=== PATIENT | male | born 1990 | race African-American/Black ===

== ENCOUNTER 2022-05-18 15:20 | Emergency (ER) | payer MEDICARE, SELFPAY ==
--- NOTE | ~2022-05-18 | CT_ITS ---
EXAMINATION: CT ABDOMEN AND PELVIS WITHOUT CONTRAST CLINICAL INFORMATION: Right flank pain COMPARISON: None available. TECHNIQUE: Multidetector volumetric imaging was performed from the superior aspect of the liver through the pubic symphysis. No oral or intravenous contrast. Sagittal and coronal reformatted images were obtained on the technologist's workstation. This CT examination was performed using dose optimization techniques as appropriate, variously including the following: *Automated exposure control *Adjustment of mA and/or kV according to patient size (this includes techniques or standardized protocols for targeted exams where dose is matched to indication/reason for exam; i.e. extremities or head) *Use of iterative reconstruction technique DLP: 772 mGy-cm FINDINGS: LUNG BASES: The visualized lung bases are unremarkable. LIVER, GALLBLADDER, AND BILIARY TREE: The liver is normal in size, shape, and attenuation. No focal hepatic lesion or biliary ductal dilatation is present. There are several gallstones present, largest approximately 0.8 cm. Some fine gravel-like calculi are present at neck gallbladder or cystic duct. There is no gallbladder dilatation or wall thickening or pericholecystic inflammatory changes. Common duct unremarkable is. PANCREAS: Unremarkable. SPLEEN: Unremarkable. Incidental 1.4 cm splenule left upper quadrant. ADRENAL GLANDS: Unremarkable. KIDNEYS AND URETERS: The kidneys are normal in size, shape, and attenuation. No hydronephrosis, hydroureter, or urinary tract calculi seen. No perinephric stranding. BLADDER: Unremarkable. GASTROINTESTINAL TRACT: There is no bowel dilatation or focal inflammatory changes in bowel or mesentery. The appendix is normal. There is no pneumatosis or free air. Moderate stool is present in the right colon and there is stool also noted in the distal ileum. No wall thickening or inflammatory changes right lower quadrant. No ascites or fluid collection. ABDOMINAL WALL: No significant hernia is appreciated. LYMPH NODES: No lymphadenopathy. VASCULAR: Unremarkable. PELVIC VISCERA: Unremarkable. OSSEOUS STRUCTURES: Unremarkable. CT/CT abdomen pelvis wo IV con IMPRESSION: -Cholelithiasis. Fine calculi near cystic duct. No gallbladder wall thickening or ductal dilatation. -No hydronephrosis, urinary tract calculi, or perinephric stranding. -Normal appendix. No inflammatory changes in bowel or mesentery. No ascites or fluid collection. -Moderate stool right colon and distal ileum. No proximal obstruction
[2022-05-18 16:05] VITALS: BP 137/104; PULSE 121; RESP 20; TEMP 36.6; O2SAT 98; BMI 36.9
--- NOTE | 2022-05-18 16:05 | ED.GENADULT ---
HPI - General Adult General Chief complaint: Back Pain/Injury <KHOA Walsh - Last Filed: 05/18/22 16:07> Stated complaint: R side back pain/Diff breathing <KHOA Walsh - Last Filed: 05/18/22 16:07> Time Seen by Provider: 05/18/22 21:17 <KOHA Walsh - Last Filed: 05/18/22 16:07> Source: patient <Drew Clay MD - Last Filed: 05/19/22 04:23> Mode of arrival: ambulatory <Drew Clay MD - Last Filed: 05/19/22 04:23> Limitations: no limitations <Drew Clay MD - Last Filed: 05/19/22 04:23> History of Present Illness HPI narrative: Patient with history of off and on back problems noticed pain in the right upper back since yesterday pressure with nausea no vomiting or diarrhea no urinary complaints fever or chills pain increases on movement and taking deep breaths patient denied any cough no trauma no leg weakness <Drew Clay MD - Last Filed: 05/19/22 04:23> Related Data Home medications: Previous Rx's Medication Instructions Recorded cyclobenzaprine 10 mg tablet 10 mg PO Q8H #20 tabs 05/18/22 oxycodone-acetaminophen 5 mg-325 1 tab PO Q6H PRN pain #20 tabs 05/18/22 mg tablet (Percocet) <KHOA Walsh - Last Filed: 05/18/22 16:07> Allergies/adverse reactions: Allergies Allergy/AdvReac Type Severity Reaction Status Date / Time No Known Allergies Allergy Verified 05/18/22 16:06 <KHOA Walsh - Last Filed: 05/18/22 16:07> Review of Systems Review of Systems: Yes all other systems are reviewed and are negative <Drew Clay MD - Last Filed: 05/19/22 04:23> [facility] Social History Social History: Social History Advance Directives: No Advance Directives Information Provided: No <KHOA Walsh - Last Filed: 05/18/22 16:07> Physical Exam ED Vital Signs: Vital Signs - 24 hr 05/18/22 16:05 05/18/22 21:18 05/18/22 23:16 Temperature 98 F 97.6 F 98.0 F Pulse Rate 121 H 112 H 89 Respiratory Rate 20 16 17 Blood Pressure 137/104 H 142/77 H 127/74 Pulse Oximetry 98 99 96 Oxygen Delivery Method Room Air Room Air BMI result Body Mass Index 36.9 <KHOA Walsh - Last Filed: 05/18/22 16:07> Vital Signs - 24 hr 05/18/22 16:05 05/18/22 21:18 05/18/22 23:16 Temperature 98 F 97.6 F 98.0 F Pulse Rate 121 H 112 H 89 Respiratory Rate 20 16 17 Blood Pressure 137/104 H 142/77 H 127/74 Pulse Oximetry 98 99 96 Oxygen Delivery Method Room Air Room Air BMI result Body Mass Index 36.9 <Drew Clay MD - Last Filed: 05/19/22 04:23> Appearance: Alert. Oriented X3. In moderate distress Eyes: No pallor/ icterus ENT: Pharynx normal. Oral Mucosa moist Neck: Normal inspection. Neck supple. CVS: Normal heart rate and rhythm. Pulses normal. Respiratory: No respiratory distress. Equal air entry bilateral, no wheezing/rales/rhonchi Abdomen: Soft , mild right upper quadrant tenderness no rebound tenderness or guarding Bowel sounds are present, no mass palpable, no CVA tenderness back: Tender paraspinous no focal spinal tenderness Skin: Skin warm and dry. Normal skin color. Normal skin turgor. Extremities: No lower extremity edema. No calf tenderness Neuro: Oriented X 3. No motor deficit. No sensory deficit.No cerebellar signs , cranial nerves II-XII intact <Drew Clay MD - Last Filed: 05/19/22 04:23> Course Course Course Narrative: This is an RME: Additional HPI, ROS, PE not included below will be deferred to primary provider. 32-year-old male presents with right-sided flank pain since yesterday, reports decreased urinary stream is well, no history of kidney stones. Reports he is very uncomfortable worse with movement better at rest. States he is unable to sit down because this would make pain worse. Denies fevers, chills, red flag symptoms of back pain. Physical exam right-sided flank discomfort. No saddle paresthesias. Neuro nonfocal. Ambulatory. Plan labs, urine, CT of the abdomen and pelvis. <KHOA Walsh - Last Filed: 05/18/22 16:07> Medications Administered Discontinued Medications Generic Name Dose Route Start Last Admin Trade Name Freq PRN Reason Stop Dose Admin Sodium Chloride 1,000 mls @ 999 mls/hr 05/18/22 16:15 05/18/22 21:21 Ns IV 05/18/22 17:15 Not Given .Q1H1M KENDALL Sodium Chloride 1,000 mls @ 999 mls/hr 05/18/22 21:28 05/18/22 22:35 Ns IV 05/18/22 22:28 Infused .Q1H1M ONE Infusion Ketorolac Tromethamine 30 mg 05/18/22 21:28 05/18/22 21:44 Ketorolac Tromethamine 30 Mg/Ml Vial IVPUSH 05/18/22 21:29 30 mg ONCE ONE Administration Morphine Sulfate 4 mg 05/18/22 21:28 05/18/22 21:45 Morphine Sulfate 4 Mg/Ml Cartridge IVPUSH 05/18/22 21:29 4 mg ONCE ONE Administration Protocol Ondansetron HCl 4 mg 05/18/22 21:28 05/18/22 21:45 Ondansetron Hcl 4 Mg/2 Ml Vial IVPUSH 05/18/22 21:29 4 mg ONCE ONE Administration <KHOA Walsh - Last Filed: 05/18/22 16:07> Medications Administered Discontinued Medications Generic Name Dose Route Start Last Admin Trade Name Freq PRN Reason Stop Dose Admin Sodium Chloride 1,000 mls @ 999 mls/hr 05/18/22 16:15 05/18/22 21:21 Ns IV 05/18/22 17:15 Not Given .Q1H1M KENDALL Sodium Chloride 1,000 mls @ 999 mls/hr 05/18/22 21:28 05/18/22 22:35 Ns IV 05/18/22 22:28 Infused .Q1H1M ONE Infusion Ketorolac Tromethamine 30 mg 05/18/22 21:28 05/18/22 21:44 Ketorolac Tromethamine 30 Mg/Ml Vial IVPUSH 05/18/22 21:29 30 mg ONCE ONE Administration Morphine Sulfate 4 mg 05/18/22 21:28 05/18/22 21:45 Morphine Sulfate 4 Mg/Ml Cartridge IVPUSH 05/18/22 21:29 4 mg ONCE ONE Administration Protocol Ondansetron HCl 4 mg 05/18/22 21:28 05/18/22 21:45 Ondansetron Hcl 4 Mg/2 Ml Vial IVPUSH 05/18/22 21:29 4 mg ONCE ONE Administration <Drew Clay MD - Last Filed: 05/19/22 04:23> Medical Decision Making Medical Decision Making [facility] Narrative: Patient with back spasm Angela sign negative does have gallstones also no signs of cholecystitis, no neuro deficit pain improved after pain medication and muscle relaxant discharge patient home advised to follow with surgeon <Drew Clay MD - Last Filed: 05/19/22 04:23> Lab Data [facility] Lab Attestation statement: I reviewed the patient's lab results. <Drew Clay MD - Last Filed: 05/19/22 04:23> Result Diagrams: 05/18/22 16:48 05/18/22 06:28 <KHOA Walsh - Last Filed: 05/18/22 16:07> Labs: Lab Results 05/18/22 05/18/22 05/18/22 Range/Units 06:28 16:48 16:48 WBC 13.1 H (4.8-10.8) X10*3/uL RBC 5.82 H (4.60-5.80) X10*6/uL Hgb 16.0 (14.0-18.0) g/dl Hct 48.0 (42.0-52.0) % MCV 82.5 (80.0-98.0) fL MCH 27.5 (27.0-33.0) pg MCHC 33.3 (31.0-36.0) g/dl RDW 12.8 (11.0-16.0) % Plt Count 318 (160-400) X10*3/uL MPV 10.3 (9.4-12.4) fL Immature Gran % (Auto) 0.3 (0.0-0.4) % Neut % (Auto) 70.0 (45-73) % Lymph % (Auto) 18.1 L (20-40) % [place] % (Auto) 10.5 (2-11) % Eos % (Auto) 0.6 (0-4) % Baso % (Auto) 0.5 (0-2) % Lymph # (Auto) 2.4 (1.2-4.9) X10*3/uL [place] # (Auto) 1.4 H (0.1-1.2) X10*3/uL Eos # (Auto) 0.1 (0.0-0.4) X10*3/uL Baso # (Auto) 0.1 (0.0-0.2) X10*3/uL Abs Immat Gran (auto) 0.04 H (0.00-0.03) X10*3/uL Absolute Neuts (auto) 9.1 H (2.0-8.3) x10*3/uL Absolute Nucleated RBC 0.000 (0.0-0.012) X10*3/uL Nucleated RBC % (auto) 0.0 (0.0-0.2) /100WBC Sodium 140 (135-145) mmol/L Potassium 4.7 (3.3-5.1) mmol/L Chloride 105 (96-108) mmol/L Carbon Dioxide 24 (22-29) mmol/L Anion Gap 16 (12-20) BUN 12 (9-16) mg/dL Creatinine 1.13 (0.5-1.4) mg/dL Estim Creat Clear Calc 118.6 Estimated GFR > 60 Random Glucose 101 (60-115) mg/dL Calcium 10.0 (8.4-10.2) mg/dL Magnesium 1.9 (1.6-2.6) mg/dL Total Bilirubin 0.7 (0.0-1.0) mg/dL AST 28 (5-37) U/L ALT 43 H (0-40) U/L Alkaline Phosphatase 67 (39-117) U/L Total Protein 8.0 (6.5-8.0) g/dL Albumin 4.8 (3.5-5.0) g/dL Lipase 10 (8-78) U/L Urine Color Urine Appearance Urine pH (5.0-9.0) Ur Specific [place] (1.005-1.025) Urine Protein (Neg-Trace) mg/dL Urine Glucose (UA) (Negative) mg/dL Urine Ketones (Negative) mg/dL Urine Blood (Negative) Urine Nitrite (Negative) Ur Leukocyte Esterase (Negative) COVID-19 (MAY) Negative (Negative) COVID-19 Clin Com See Note 05/18/22 Range/Units 21:24 WBC (4.8-10.8) X10*3/uL RBC (4.60-5.80) X10*6/uL Hgb (14.0-18.0) g/dl Hct (42.0-52.0) % MCV (80.0-98.0) fL MCH (27.0-33.0) pg MCHC (31.0-36.0) g/dl RDW (11.0-16.0) % Plt Count (160-400) X10*3/uL MPV (9.4-12.4) fL Immature Gran % (Auto) (0.0-0.4) % Neut % (Auto) (45-73) % Lymph % (Auto) (20-40) % [place] % (Auto) (2-11) % Eos % (Auto) (0-4) % Baso % (Auto) (0-2) % Lymph # (Auto) (1.2-4.9) X10*3/uL [place] # (Auto) (0.1-1.2) X10*3/uL Eos # (Auto) (0.0-0.4) X10*3/uL Baso # (Auto) (0.0-0.2) X10*3/uL Abs Immat Gran (auto) (0.00-0.03) X10*3/uL Absolute Neuts (auto) (2.0-8.3) x10*3/uL Absolute Nucleated RBC (0.0-0.012) X10*3/uL Nucleated RBC % (auto) (0.0-0.2) /100WBC Sodium (135-145) mmol/L Potassium (3.3-5.1) mmol/L Chloride (96-108) mmol/L Carbon Dioxide (22-29) mmol/L Anion Gap (12-20) BUN (9-16) mg/dL Creatinine (0.5-1.4) mg/dL Estim Creat Clear Calc Estimated GFR Random Glucose (60-115) mg/dL Calcium (8.4-10.2) mg/dL Magnesium (1.6-2.6) mg/dL Total Bilirubin (0.0-1.0) mg/dL AST (5-37) U/L ALT (0-40) U/L Alkaline Phosphatase (39-117) U/L Total Protein (6.5-8.0) g/dL Albumin (3.5-5.0) g/dL Lipase (8-78) U/L Urine Color Yellow Urine Appearance Cloudy Urine pH 6.0 (5.0-9.0) Ur Specific [place] >= 1.030 H (1.005-1.025) Urine Protein Trace (Neg-Trace) mg/dL Urine Glucose (UA) Negative (Negative) mg/dL Urine Ketones Trace (Negative) mg/dL Urine Blood Negative (Negative) Urine Nitrite Negative (Negative) Ur Leukocyte Esterase Negative (Negative) COVID-19 (MAY) (Negative) COVID-19 Clin Com <KHOA Walsh - Last Filed: 05/18/22 16:07> Lab Results 05/18/22 05/18/22 05/18/22 Range/Units 06:28 16:48 16:48 WBC 13.1 H (4.8-10.8) X10*3/uL RBC 5.82 H (4.60-5.80) X10*6/uL Hgb 16.0 (14.0-18.0) g/dl Hct 48.0 (42.0-52.0) % MCV 82.5 (80.0-98.0) fL MCH 27.5 (27.0-33.0) pg MCHC 33.3 (31.0-36.0) g/dl RDW 12.8 (11.0-16.0) % Plt Count 318 (160-400) X10*3/uL MPV 10.3 (9.4-12.4) fL Immature Gran % (Auto) 0.3 (0.0-0.4) % Neut % (Auto) 70.0 (45-73) % Lymph % (Auto) 18.1 L (20-40) % [place] % (Auto) 10.5 (2-11) % Eos % (Auto) 0.6 (0-4) % Baso % (Auto) 0.5 (0-2) % Lymph # (Auto) 2.4 (1.2-4.9) X10*3/uL [place] # (Auto) 1.4 H (0.1-1.2) X10*3/uL Eos # (Auto) 0.1 (0.0-0.4) X10*3/uL Baso # (Auto) 0.1 (0.0-0.2) X10*3/uL Abs Immat Gran (auto) 0.04 H (0.00-0.03) X10*3/uL Absolute Neuts (auto) 9.1 H (2.0-8.3) x10*3/uL Absolute Nucleated RBC 0.000 (0.0-0.012) X10*3/uL Nucleated RBC % (auto) 0.0 (0.0-0.2) /100WBC Sodium 140 (135-145) mmol/L Potassium 4.7 (3.3-5.1) mmol/L Chloride 105 (96-108) mmol/L Carbon Dioxide 24 (22-29) mmol/L Anion Gap 16 (12-20) BUN 12 (9-16) mg/dL Creatinine 1.13 (0.5-1.4) mg/dL Estim Creat Clear Calc 118.6 Estimated GFR > 60 Random Glucose 101 (60-115) mg/dL Calcium 10.0 (8.4-10.2) mg/dL Magnesium 1.9 (1.6-2.6) mg/dL Total Bilirubin 0.7 (0.0-1.0) mg/dL AST 28 (5-37) U/L ALT 43 H (0-40) U/L Alkaline Phosphatase 67 (39-117) U/L Total Protein 8.0 (6.5-8.0) g/dL Albumin 4.8 (3.5-5.0) g/dL Lipase 10 (8-78) U/L Urine Color Urine Appearance Urine pH (5.0-9.0) Ur Specific [place] (1.005-1.025) Urine Protein (Neg-Trace) mg/dL Urine Glucose (UA) (Negative) mg/dL Urine Ketones (Negative) mg/dL Urine Blood (Negative) Urine Nitrite (Negative) Ur Leukocyte Esterase (Negative) COVID-19 (MAY) Negative (Negative) COVID-19 Clin Com See Note 05/18/22 Range/Units 21:24 WBC (4.8-10.8) X10*3/uL RBC (4.60-5.80) X10*6/uL Hgb (14.0-18.0) g/dl Hct (42.0-52.0) % MCV (80.0-98.0) fL MCH (27.0-33.0) pg MCHC (31.0-36.0) g/dl RDW (11.0-16.0) % Plt Count (160-400) X10*3/uL MPV (9.4-12.4) fL Immature Gran % (Auto) (0.0-0.4) % Neut % (Auto) (45-73) % Lymph % (Auto) (20-40) % [place] % (Auto) (2-11) % Eos % (Auto) (0-4) % Baso % (Auto) (0-2) % Lymph # (Auto) (1.2-4.9) X10*3/uL [place] # (Auto) (0.1-1.2) X10*3/uL Eos # (Auto) (0.0-0.4) X10*3/uL Baso # (Auto) (0.0-0.2) X10*3/uL Abs Immat Gran (auto) (0.00-0.03) X10*3/uL Absolute Neuts (auto) (2.0-8.3) x10*3/uL Absolute Nucleated RBC (0.0-0.012) X10*3/uL Nucleated RBC % (auto) (0.0-0.2) /100WBC Sodium (135-145) mmol/L Potassium (3.3-5.1) mmol/L Chloride (96-108) mmol/L Carbon Dioxide (22-29) mmol/L Anion Gap (12-20) BUN (9-16) mg/dL Creatinine (0.5-1.4) mg/dL Estim Creat Clear Calc Estimated GFR Random Glucose (60-115) mg/dL Calcium (8.4-10.2) mg/dL Magnesium (1.6-2.6) mg/dL Total Bilirubin (0.0-1.0) mg/dL AST (5-37) U/L ALT (0-40) U/L Alkaline Phosphatase (39-117) U/L Total Protein (6.5-8.0) g/dL Albumin (3.5-5.0) g/dL Lipase (8-78) U/L Urine Color Yellow Urine Appearance Cloudy Urine pH 6.0 (5.0-9.0) Ur Specific [place] >= 1.030 H (1.005-1.025) Urine Protein Trace (Neg-Trace) mg/dL Urine Glucose (UA) Negative (Negative) mg/dL Urine Ketones Trace (Negative) mg/dL Urine Blood Negative (Negative) Urine Nitrite Negative (Negative) Ur Leukocyte Esterase Negative (Negative) COVID-19 (MAY) (Negative) COVID-19 Clin Com <Drew Clay MD - Last Filed: 05/19/22 04:23> Discharge Plan Discharge Clinical Impression: Strain of lumbar region, Gall stones <KHOA Walsh - Last Filed: 05/18/22 16:07> Patient Disposition: Home, Self-Care <KHOA Walsh - Last Filed: 05/18/22 16:07> Instructions: Gallstones (ED), Low Back Strain (ED) <KHOA Walsh - Last Filed: 05/18/22 16:07> Additional Instructions: Rest, apply ice pack Pain medication and muscle relaxants as prescribed Follow-up with PCP/surgeon You have gallstones which may cause the pain in right upper abdomen especially after you eat fried food Report to the ER if increased pain in the right upper abdomen/vomiting <KHOA Walsh - Last Filed: 05/18/22 16:07> Prescriptions: New cyclobenzaprine 10 mg tablet 10 mg PO Q8H Qty: 20 0RF oxycodone-acetaminophen [Percocet] 5-325 mg tablet 1 tab PO Q6H PRN (Reason: pain) Qty: 20 0RF Rx Instructions: Partial Fill upon patient request. <KHOA Walsh - Last Filed: 05/18/22 16:07> Referrals: Andrey Singh MD [Physician] - 2 weeks <KHOA Walsh - Last Filed: 05/18/22 16:07> Interventions: ED Discharge Assessment Last Done: 05/18/22 23:34 <KHOA Walsh - Last Filed: 05/18/22 16:07> Discharge Date/Time: 05/18/22 23:36 <KHOA Walsh - Last Filed: 05/18/22 16:07>
[2022-05-18 17:01] LABS: Basophils Absolute Auto 0.1 X10*3/uL (0.0-0.2); Basophils Percent Auto 0.5 % (0-2); Eosinophils Absolute Auto 0.1 X10*3/uL (0.0-0.4); Eosinophils Percent Auto 0.6 % (0-4); Imm Gran Abs Auto 0.04 X10*3/uL (0.00-0.03); Imm Gran Pct Auto 0.3 % (0.0-0.4); Lymphocytes Absolute Auto 2.4 X10*3/uL (1.2-4.9); Lymphocytes Percent Auto 18.1 % (20-40); MANUAL DIFF FLAG NO; Mean Corpuscular HGB Conc 33.3 g/dl (31.0-36.0); Mean Corpuscular Hemoglobin 27.5 pg (27.0-33.0); Mean Corpuscular Volume 82.5 fL (80.0-98.0); Mean Platelet Volume 10.3 fL (9.4-12.4); Monocytes Absolute Auto 1.4 X10*3/uL (0.1-1.2); Monocytes Percent Auto 10.5 % (2-11); Neutrophils Absolute Auto 9.1 x10*3/uL (2.0-8.3); Platelet Count 318 X10*3/uL (160-400); Red Blood Count 5.82 X10*6/uL (4.60-5.80); Red Cell Distribution Width 12.8 % (11.0-16.0); White Blood Count 13.1 X10*3/uL (4.8-10.8)
[2022-05-18 17:16] LABS: Alanine Aminotransferase 43 U/L (0-40); Albumin Level 4.8 g/dL (3.5-5.0); Alkaline Phosphatase 67 U/L (39-117); Anion Gap 16 (12-20); Aspartate Amino Transferase 28 U/L (5-37); Bilirubin Total 0.7 mg/dL (0.0-1.0); Blood Urea Nitrogen 12 mg/dL (9-16); Carbon Dioxide 24 mmol/L (22-29); Chloride 105 mmol/L (96-108); Creatinine Clr Calc Pharmacy 118.6; Estimated Glomerular Filt Rate > 60; Glucose Random 101 mg/dL (60-115); Lipase 10 U/L (8-78); Magnesium 1.9 mg/dL (1.6-2.6); Potassium 4.7 mmol/L (3.3-5.1); Sodium 140 mmol/L (135-145)
[2022-05-18 17:17] LABS: COVID-19 Test Negative (Negative); IDNOW Serial# 08D9AD1C
[2022-05-18 21:18] VITALS: BP 142/77; PULSE 112; RESP 16; TEMP 36.4; O2SAT 99
--- NOTE | 2022-05-18 21:21 | PC.NURSE ---
IVF documented against @ this time as the order was placed @ 1615 from the PIT provider. Pt ambulating into room 1, holding right flank. UA obtained and sent. VSS. Pt awaiting MD oates.
[2022-05-18 21:33] LABS: Appearance Urine Cloudy; Color Urine Yellow; Glucose Urine UA Negative (Negative); Leukocyte Esterase Urine Negative (Negative); Nitrite Urine Negative (Negative); Specific Gravity - Urine >= 1.030 (1.005-1.025); Urine Blood Negative (Negative); Urine Ketones Trace mg/dL (Negative); Urine Protein Trace mg/dL (Neg-Trace)
[2022-05-18] MEDS: Ketorolac Tromethamine 30 MG/ML VIAL IVPUSH (21:44)
[2022-05-18] MEDS: 0.9 % Sodium Chloride 1,000 ML 999 ML IV (21:45)
[2022-05-18] MEDS: ondansetron HCL 4 MG/2 ML VIAL IVPUSH (21:45)
[2022-05-18] MEDS: Morphine Sulfate 4 MG/ML CARTRIDGE IVPUSH (21:45)
--- NOTE | 2022-05-18 21:49 | PC.NURSE ---
IV established. Pt medicated per MAR for 10/10 pain to right flank and lower back. Pt assisted into POC, resting comfortably, IVF infusing easily.
[2022-05-18 23:16] VITALS: BP 127/74; PULSE 89; RESP 17; TEMP 36.7; O2SAT 96
== END 2022-05-18 23:36 | disposition home or self-care (01) ==
PROVIDERS: Physician Assistant; Emergency Provider Internal Medicine
DX: K80.20 Calculus of gallbladder without cholecystitis without obstruction (principal); S39.012A Strain of muscle, fascia and tendon of lower back, initial encounter; X58.XXXA Exposure to other specified factors, initial encounter; R10.11 Right upper quadrant pain; Z20.822 Contact with and (suspected) exposure to COVID-19; Y93.9 Activity, unspecified; Y92.9 Unspecified place or not applicable; Y99.9 Unspecified external cause status
CPT/HCPCS: 74176; 80053; 81003; 83690; 83735; 85025; 87635; 96361; 96374; 96375; 99284; J1885; J2270; J2405

== ENCOUNTER → 2022-06-01 14:25 | Outpatient (BNVA) | payer MEDICARE, SELFPAY | PROVIDERS: Visit Provider Surgery | DX: K80.20 Calculus of gallbladder without cholecystitis without obstruction (principal); M62.830 Muscle spasm of back | CPT/HCPCS: 99202 ==